=== PATIENT | female | born 1965 ===

== ENCOUNTER 2016-10-13 05:44 | Inpatient (IN) ==
[2016-10-03 14:20] LABS: Basophils # 0.1 10*3/uL (0.0-0.2); Basophils % 0.5 % (0.0-0.8); Eosinophils # 0.1 10*3/uL (0.0-0.87); Eosinophils % 1.2 % (0.00-10.9); Hematocrit 41.5 VOL% (35.7-47.0); Hemoglobin 14.4 GM/DL (12.0-16.0); Immature Granulocytes % 0.4 %; Immature Granulocytes Absolute 0.04 #; Lymphocytes # 2.7 10*3/uL (1.4-4.0); Lymphocytes % 29.5 % (21.3-54.2); Mean Corpuscular HGB Conc 34.7 GM/DL (32-36); Mean Corpuscular Hemoglobin 30 PG (27-34); Mean Corpuscular Volume 85.6 FL (87-102); Mean Platelet Volume 9.8 FL (9.6-12.0); Monocytes # 0.7 10*3/uL (0.11-0.8); Monocytes % 7.9 % (1.7-12.7); Neutrophils # 5.6 10*3/uL (1.4-7.4); Neutrophils % 60.5 % (38.7-73.9); Platelet Count 301 T/CUMM (130-400); Red Blood Count 4.85 MC/CUMM (3.8-5.5); Red Cell Distribution Width 13.6 % (9.3-17.3); White Blood Count 9.2 T/CUMM (4-12)
[2016-10-03 14:32] LABS: Apearance,Urine Slightly Hazy (Clear); Bilirubin,Urine Negative (Negative); Blood, Urine Small mg/dL (Negative); Glucose,Urine (UA) Negative (Negative); Ketones,Urine Negative (Negative); Nitrite,Urine Negative (Negative); PT Patient Result 10.8 SECS; Partial Thromboplastin Time 28.4 SECS (0-40); Protein,Urine Negative; RBC,Urine 1 /HPF (0-4); Squamous Epithelial Cell,Urine Occasional /HPF (0-10); Urine Color Straw (Yellow); Urine Specific Gravity 1.009 (1.001-1.035); Urine Urobilinogen < 2.0 EU/DL (0.2-1.0); WBC,Urine 1 /HPF (0-6)
[2016-10-03 14:44] LABS: Albumin 3.5 G/DL (3.4-5.0); Bilirubin,Total 0.5 MG/DL (0.2-1.0); Calcium 8.4 MG/DL (8.5-10.1); Potassium 3.3 MMOL/L (3.5-5.1); Total Protein 6.8 G/DL (6.4-8.3)
--- NOTE | 2016-10-03 14:54 | XRay Report ---
XR chest 2V Indication: Preop respiratory evaluation. Chest 2 views: Comparison 06/16/2016. The heart size and mediastinal contour are normal. The lungs and pleural spaces are clear. Bones are unremarkable. Impression: Negative chest. PROCEDURE INTERPRETED AT [facility] DEPARTMENT OF RADIOLOGY Final Report Signed by: Antony Daly M.D.
--- NOTE | 2016-10-03 14:54 | EKG Report ---
Stationary ECG Study [facility] Test Date: 10/03/2016 2:53:47 PM Pat Name: ARTHUR DIAZ Department: Room: Gender: F Older Adult Social Work Specialist: MERCEDES 10-13-16 : 1965 Requested by: Carlos Manuel Garcia Order Number: [id number] Reading MD: FRANCI MOORE Intervals [place] Rate: 80 P: 72 PA: 143 QRS: 82 QRSD: 89 T: 57 QT: 367 QTc: 403 Interpretive Statements SINUS RHYTHM LOW QRS VOLTAGE IN PRECORDIAL LEADS Electronically Signed On 10-05-16 22:14:38 CDT by FRANCI MOORE [email or web address]
[2016-10-13] MEDS ORDERED: VANCOMYCIN 1,000 MG VIAL ONE (05:54)
[2016-10-13] MEDS ORDERED: VANCOMYCIN INJ 1,000 MG in SODIUM CHLORIDE 0.9% 250 ML IV ONE ×2 (06:00→14:58)
[2016-10-13] MEDS ORDERED: ceFAZolin 2,000 MG in PREMIX 1 EACH IV ONE (06:00)
[2016-10-13] MEDS ORDERED: TRANEXAMIC ACID 1,000 MG/10 ML VIAL IV ONE (06:10)
--- NOTE | 2016-10-13 06:55 | History and Physical Update ---
History and Physical Update - History and Physical H&P was reviewed, the patient examined and there: are no changes in the patients condition since last H&P was completed.
[2016-10-13] MEDS ORDERED: diphenhydrAMINE CAP 25 MG CAPSULE PO PRN (06:57)
[2016-10-13] MEDS ORDERED: ONDANSETRON 4 MG/2 ML VIAL IV PRN (06:57)
[2016-10-13] MEDS ORDERED: ZALEPLON 5 MG CAPSULE PO PRN (06:57)
[2016-10-13] MEDS ORDERED: MAGNESIUM HYDROXIDE SUSP 30 ML UDCUP PO PRN (06:57)
[2016-10-13] MEDS ORDERED: oxyCODONE IR 5 MG TABLET PO PRN ×2 (06:57)
[2016-10-13] MEDS ORDERED: MORPHINE 2 MG/1 ML SYRINGE IV PRN ×2 (06:59)
[2016-10-13] MEDS ORDERED: PHENYLEPHRINE 1 MG/10 ML SYRINGE IV ONE (07:00)
[2016-10-13] MEDS ORDERED: PROPOFOL 200 MG/20 ML VIAL IV ONE (07:00)
[2016-10-13] MEDS ORDERED: KETOROLAC 30 MG/1 ML VIAL IV SCH (07:00)
[2016-10-13] MEDS ORDERED: LIDOCAINE 2% 5 ML VIAL ONE (07:00)
[2016-10-13] MEDS: LACTATED RINGERS 1,000 ML IV SCH ×2 (07:12→18:08)
[2016-10-13] MEDS ORDERED: BACITRACIN OINT 0.9 GM PACK TOP ONE (08:16)
[2016-10-13] MEDS ORDERED: ROPIVACAINE 0.5% 30 ML VIAL ONE (08:28)
--- NOTE | 2016-10-13 08:29 | Operative Note ---
Date of procedure: 10/13/16 Procedure: DIAGNOSIS: Left knee primary osteoarthrosis PROCEDURE: Left total knee arthroplasty (cpt #94374) SURGEON: Jackie WATCHGUARD: Shlomo ANESTHESIA: Spinal converted to general with postoperative adductor canal block PROCEDURE and FINDINGS: After adequate was induced, the patient's knee was prepped and draped in the usual sterile fashion. The limb was exsanguinated with Esmarch. Tourniquet was inflated to 300 mmHg. A median parapatellar approach was made. Femur was cut using an intramedullary guide and a 4 in 1 cutting jig in 5 degrees of valgus. ACL and menisci were excised. Tibia was cut using intramedullary guide. Patella was cut using freehand technique. Components were trialed. Tibial fin was prepared. Components are cemented in place using Palacos cement and modern cementing techniques. Cement was removed. A 1/8 inch Hemovac drain was placed. The knee was well-balanced and full range of motion with central tracking patella. Deep layers closed with 0-0 Vicryl. Superficial layers were closed with 2-0 and 3-0 Vicryl. Skin was approximated with kellie. Bacitracin and a sterile dressing was applied. Patient was transferred to recovery. A postoperative adductor canal block is anticipated. COMPONENTS: The Jonah Persona system was used. 9 CR standard femur, F natural tibia, 10 mm liner, 29 mm patella TOURNIQUET TIME: 31 minutes Surgeon / Physician: Carlos Manuel Mejia Jr. Results - Labs CBC & BMP: 10/03/16 14:13 10/03/16 14:13 Discharge Plan - Discharge Medications No Action Aspirin [Ecotrin] 1 tablet PO DAILY hydroCHLOROthiazide [Hydrochlorothiazide] 25 mg PO DAILY Lisinopril [Zestril] 20 mg PO DAILY Meloxicam 15 mg PO DAILY Brimonidine Tartrate [Brimonidine 0.2% Oph Soln] 1 drop BOTH EYES TID - Follow Up or Referral - Forms/Instructions
--- NOTE | 2016-10-13 09:02 | XRay Report ---
Exam: XR knee 2V LT Date: 10/13/2016 6:59 AM Comparison: None Indication: Status post left knee replacement Technique:[AP and lateral left knee] Findings: Recent satisfactory left total knee replacement with postoperative findings noted. Impression: Recent satisfactory left total knee replacement. No acute fracture or dislocation. PROCEDURE INTERPRETED AT [facility] DEPARTMENT OF RADIOLOGY Final Report Signed by: Dr. Kacey Kwon
--- NOTE | 2016-10-13 10:25 | Anesthesia Post-Op ---
Anesthesia Post OP - Post Ansesthetic Evaluation Patient seen in post op: Yes Resp: within normal limits CV: within normal limits Mental: within normal limits Temp: within normal limits [id number]: within normal limits Nausea and Vomiting: within normal limits Pain: within normal limits
[2016-10-13] MEDS: ACETAMINOPHEN 500 MG TABLET PO SCH ×2 (10:54→16:21)
[2016-10-13] MEDS: KETOROLAC 30 MG/1 ML VIAL IV SCH ×3 (10:55→21:41)
[2016-10-13] MEDS: DOCUSATE SODIUM 100 MG CAPSULE PO SCH ×2 (10:55→21:41)
[2016-10-13] MEDS: BRIMONIDINE 0.2% OPH SOLN 5 ML BOTTLE BOTH EYES SCH ×3 (10:59→21:41)
[2016-10-13] MEDS: ceFAZolin 2,000 MG in PREMIX 1 EACH IV SCH (15:00)
--- NOTE | 2016-10-13 17:32 | Orthopedic Progress Note ---
Orthopedics - Subjective Interval history: Comfortable. She is sitting up in a chair in his work with physical therapy. Dressing is clean, dry and intact. Her left foot and ankle neurovascularly unchanged. She can perform a straight leg raise. Plan: Continue with orders. Exam - Constitutional Vitals: Period Temp Pulse Resp BP Sys/Romeo Pulse Ox Last 24 Hr 96.9 F-99.7 F 76-114 16-20 93-147/56-87 95-100 Results - Labs CBC & BMP: 10/03/16 14:13 10/03/16 14:13
[2016-10-14] MEDS: FONDAPARINUX 2.5 MG/0.5 ML SYRINGE SUBCUT SCH ×2 (00:28→23:59)
[2016-10-14] MEDS: ceFAZolin 2,000 MG in PREMIX 1 EACH IV SCH (00:32)
[2016-10-14] MEDS: ACETAMINOPHEN 500 MG TABLET PO SCH ×2 (00:32→05:52)
[2016-10-14] MEDS: LACTATED RINGERS 1,000 ML IV SCH ×2 (00:33→04:20)
[2016-10-14 04:44] LABS: Basophils % 0.1 % (0.0-0.8); Hematocrit 27.4 VOL% (35.7-47.0); Hemoglobin 9.6 GM/DL (12.0-16.0); Immature Granulocytes % 0.6 %; Immature Granulocytes Absolute 0.08 #; Lymphocytes # 2.4 10*3/uL (1.4-4.0); Lymphocytes % 17.5 % (21.3-54.2); Mean Corpuscular Hemoglobin 29 PG (27-34); Mean Platelet Volume 10.1 FL (9.6-12.0); Monocytes # 1.4 10*3/uL (0.11-0.8); Monocytes % 9.7 % (1.7-12.7); Neutrophils # 10.1 10*3/uL (1.4-7.4); Neutrophils % 72.1 % (38.7-73.9); Platelet Count 243 T/CUMM (130-400); Red Blood Count 3.26 MC/CUMM (3.8-5.5)
[2016-10-14] MEDS: KETOROLAC 30 MG/1 ML VIAL IV SCH (04:55)
[2016-10-14 05:16] LABS: Calcium 7.3 MG/DL (8.5-10.1); Potassium 3.2 MMOL/L (3.5-5.1)
[2016-10-14] MEDS ORDERED: KETOROLAC 30 MG/1 ML VIAL ONE (05:43)
[2016-10-14] MEDS ORDERED: SEVOFLURANE 1 UNIT/15 MINUTE INH ONE (06:06)
[2016-10-14] MEDS ORDERED: fentaNYL 100 MCG/2 ML VIAL ONE (06:06)
[2016-10-14] MEDS ORDERED: MIDAZOLAM 2 MG/2 ML VIAL ONE (06:06)
[2016-10-14] MEDS ORDERED: SODIUM CHLORIDE 0.9% 250 ML IV ONE (06:06)
[2016-10-14] MEDS: DOCUSATE SODIUM 100 MG CAPSULE PO SCH ×2 (08:37→20:19)
[2016-10-14] MEDS: POTASSIUM CHLORIDE 20 MEQ TABLET PO SCH ×2 (08:37→20:19)
--- NOTE | 2016-10-14 08:47 | Orthopedic Progress Note ---
Orthopedics - Subjective Interval history: Comfortable. Left lower extremities neurovascularly intact. Dressing clean, dry and intact. Plan: Add oral potassium for hypokalemia. Mobilize with physical therapy. Exam - Constitutional Vitals: Period Temp Pulse Resp BP Sys/Romeo Pulse Ox Last 24 Hr 96.9 F-98.7 F 76-97 16-20 104-136/57-87 95-99 Results - Labs CBC & BMP: 10/14/16 04:25 10/14/16 04:25
[2016-10-14] MEDS: BRIMONIDINE 0.2% OPH SOLN 5 ML BOTTLE BOTH EYES SCH ×3 (11:03→20:22)
[2016-10-14] MEDS: hydroCHLOROthiazide 25 MG TABLET PO SCH (13:54)
[2016-10-14] MEDS: CELECOXIB 200 MG CAPSULE PO SCH (13:54)
[2016-10-14] MEDS: LISINOPRIL 20 MG TABLET PO SCH (13:54)
[2016-10-15 06:05] LABS: Basophils % 0.3 % (0.0-0.8); Eosinophils # 0.1 10*3/uL (0.0-0.87); Eosinophils % 0.9 % (0.00-10.9); Hematocrit 28.3 VOL% (35.7-47.0); Hemoglobin 9.7 GM/DL (12.0-16.0); Lymphocytes # 2.9 10*3/uL (1.4-4.0); Lymphocytes % 29.8 % (21.3-54.2); Mean Corpuscular HGB Conc 34.3 GM/DL (32-36); Mean Corpuscular Hemoglobin 29 PG (27-34); Mean Corpuscular Volume 85.8 FL (87-102); Mean Platelet Volume 10.4 FL (9.6-12.0); Monocytes # 0.7 10*3/uL (0.11-0.8); Neutrophils # 5.9 10*3/uL (1.4-7.4); Platelet Count 240 T/CUMM (130-400); Red Cell Distribution Width 13.6 % (9.3-17.3); White Blood Count 9.7 T/CUMM (4-12)
[2016-10-15 06:35] LABS: Calcium 7.6 MG/DL (8.5-10.1); Osmolality,Calculated 281.1 MOS/KG (273-304); Potassium 3.7 MMOL/L (3.5-5.1)
--- NOTE | 2016-10-15 07:48 | Discharge Summary ---
Hospital Course - Hospital Course Hospital Course: Ms. Simpson was admitted after undergoing an uncomplicated left total knee arthroplasty. She received perioperative DVT and antimicrobial prophylaxis. She received physical therapy. She was discharged home in stable condition. Her dressing is clean, dry and intact. Her left lower extremities neurovascularly unchanged. Discharge Plan - Discharge Data Disposition: Disch To Home/Self Care Condition at Discharge: Stable Discharge Diet: advance to your usual diet Hygiene: may shower Weight Bearing at Discharge: weight bear as tolerated Driving: not until seen by doctor - Discharge Medications New HYDROcodone/ACETAMIN 7.5-325 [Evergreen 7.5-325] 2 tablet PO Q4H PRN #0 tablet PRN Reason: Moderate Pain unrelieved by 1 HYDROcodone/ACETAMIN 7.5-325 [Evergreen 7.5-325] 1 tablet PO Q4H PRN #0 tablet PRN Reason: Pain Moderate (4-7) Continue hydroCHLOROthiazide [Hydrochlorothiazide] 25 mg PO DAILY Lisinopril [Zestril] 20 mg PO DAILY Meloxicam 15 mg PO DAILY Brimonidine Tartrate [Brimonidine 0.2% Oph Soln] 1 drop BOTH EYES TID Discontinued Aspirin [Ecotrin] 1 tablet PO DAILY - Follow Up or Referral - Forms/Instructions Additional Discharge Instructions: Daily dry dressing changes. Weightbearing as tolerated. CPM for 3 weeks. Arrange walker and bedside commode for home use. Wear JOSE hose for 1 month. Follow-up appointment in 10-12 days. Take aspirin 325 mg by mouth daily for 21 days. Then resume taking baby aspirin daily. Prescription for Evergreen 7.5 with 40 tablets was written. Exam - Constitutional Vitals: Period Temp Pulse Resp BP Sys/Romeo Pulse Ox Last 24 Hr 97.9 F-98.6 F 68-84 12-18 110-145/57-77 96-99 Discharge Results Labs on day of discharge: Labs from last 24 hours 10/15/16 10/15/16 05:39 05:39 WBC 9.7 D RBC 3.30 L Hgb 9.7 L Hct 28.3 L MCV 85.8 L MCH 29 MCHC 34.3 RDW 13.6 Plt Count 240 MPV 10.4 Neut % (Auto) 61.0 Lymph % (Auto) 29.8 [place] % (Auto) 7.0 Eos % (Auto) 0.9 Baso % (Auto) 0.3 Neut # (Auto) 5.9 Lymph # (Auto) 2.9 [place] # (Auto) 0.7 Eos # (Auto) 0.1 Baso # (Auto) 0.0 Immature Gran % 1.0 Nucleated RBC % 0.0 Immature Gran # 0.10 Nucleated RBCs # 0.00 Sodium 142 Potassium 3.7 Chloride 106 Carbon Dioxide 26 Anion Gap 13.7 BUN 6 L Creatinine 0.80 GFR Calculation 104 BUN/Creatinine Ratio 7.00 Glucose 125 H Calculated Osmolality 281.1 Calcium 7.6 L DS: Provider Date of admission: 10/13/16 05:44 Primary care physician: Tayla Zavala MD Attending physician on admission: Carlos Manuel Mejia Jr., Consults: 10/13/16 06:57 Consult to Case Mgmt/Social Srvs [CONS] Routine Reason for Case Mgmt/Social Srvs: Rehab Home Health Equipment Consult Comment: Bedside Commode, CPM, Deliver to RM 319 before D/C; Pt 5ft 7in 223lbs Consult to Occupational Therapy [CONS] Routine Reason for Occupational Therapy: Evaluate and Treat Consult Comment: ADL's Consult to Physical Therapy [CONS] Routine Reason for Physical Therapy: Evaluate and Treat Gait Training Start Therapy: Today 10/13/16 10:25 Consult to Pastoral Services [CONS] Routine Comment: Pastoral Screen: Request Career Manager Visit Pastoral Screen Source of Request: Patient Discharging clinician: Carlos Manuel Mejia Jr., Expected date of discharge: 10/15/16
[2016-10-15] MEDS: POTASSIUM CHLORIDE 20 MEQ TABLET PO SCH (09:31)
[2016-10-15] MEDS: LISINOPRIL 20 MG TABLET PO SCH (09:31)
[2016-10-15] MEDS: BRIMONIDINE 0.2% OPH SOLN 5 ML BOTTLE BOTH EYES SCH ×2 (09:31→15:33)
[2016-10-15] MEDS: DOCUSATE SODIUM 100 MG CAPSULE PO SCH (09:31)
[2016-10-15] MEDS: CELECOXIB 200 MG CAPSULE PO SCH (09:31)
[2016-10-15] MEDS: hydroCHLOROthiazide 25 MG TABLET PO SCH (09:31)
[2016-10-15 15:51] VITALS: BP 101/66
== END 2016-10-15 16:41 | disposition home or self-care (01) | DRG 470 ==
LOC: N.SDSINP 05:44 → N.3E 09:29
PROVIDERS: ADMIT Orthopaedic Surgery; ATTEND Orthopaedic Surgery